=== PATIENT | female | born 1940 | race Caucasian/White ===

== ENCOUNTER 2019-11-26 00:33 | Inpatient (IN) | payer OTHER ==
[~2019-11-26] VITALS: Ht 167.6 cm; Wt 85.4 kg
--- NOTE | 2019-11-26 00:40 | NUR ---
PT BIBA FROM HOME C/O N/V/D TODAY. PT AAOX2, RESPIRATIONS EVEN AND UNLABORED ON RA W/ AND NOTED. PT CONNECTED TO THE MONITOR AND POX
--- NOTE | 2019-11-26 00:50 | NUR ---
BLOOD COLLECTED AND SENT TO LAB
[2019-11-26 00:55] LABS: BASOPHILS # (AUTO) 0.1 /CMM (0.0-0.2); BASOPHILS % (AUTO) 0.6 % (0.0-2.0); EOSINOPHILS % (AUTO) 0.1 % (0.0-6.0); HEMATOCRIT 42 % (33-45); HEMOGLOBIN 14.3 g/dL (11.5-14.8); LYMPHOCYTES # (AUTO) 2.2 /CMM (0.8-4.8); LYMPHOCYTES % (AUTO) 12.7 % (20.0-44.0); MEAN CORPUSCULAR HGB CONC 34 g/dl (31.0-36.0); MEAN CORPUSCULAR VOLUME 91 fL (82-100); MONOCYTES # (AUTO) 0.7 /CMM (0.1-1.30); MONOCYTES % (AUTO) 4.2 % (2.0-12.0); NEUTROPHILS # (AUTO) 14.2 /CMM (1.8-8.9); NEUTROPHILS % (AUTO) 82.4 % (43.0-81.0); PLATELET COUNT (AUTO) 235 /CMM (150-450); RED BLOOD CELL COUNT(AUTO) 4.58 MIL/uL (4.0-5.2); WHITE BLOOD COUNT (AUTO) 17.2 K/uL (4.3-11.0)
[2019-11-26] MEDS ORDERED: IV NS 0.9% 1,000 ML BAG IV ONE (01:00)
[2019-11-26] MEDS ORDERED: ONDANSETRON HCL/PF 4 MG/2 ML VIAL IVP ONE (01:00)
[2019-11-26] MEDS ORDERED: ONDANSETRON HCL/PF 4 MG/2 ML VIAL ONE ×2 (01:06→01:59)
[2019-11-26] MEDS ORDERED: ASPIRIN 325 MG TABLET PO ONE (01:30)
--- NOTE | 2019-11-26 01:41 | NUR ---
URINE COLLECTED AND SENT TO LAB
[2019-11-26 01:48] LABS: CALCIUM, SERUM 9.5 mg/dL (8.5-10.1); CARBON DIOXIDE 19 mmol/L (21-32); CHLORIDE 100 mmol/L (98-107); CREATININE 1.7 mg/dL (0.6-1.3); GLUCOSE 126 mg/dL (74-106); POTASSIUM 3.4 mmol/L (3.5-5.1); SODIUM SERUM 137 mmol/L (136-145); UREA NITROGEN, BLOOD 22 mg/dL (7-18)
[2019-11-26] MEDS ORDERED: ASPIRIN 325 MG TABLET ONE (01:48)
[2019-11-26 01:52] LABS: APPEARANCE,URINE CLOUDY (CLEAR); BLOOD, URINE 2+ Ery/uL (NEGATIVE); COLOR,URINE YELLOW (YELLOW); PROTEIN,URINE TRACE mg/dl (NEGATIVE); UGLUCOSE NEGATIVE (NEGATIVE)
[2019-11-26 01:53] LABS: BILIRUBIN,URINE SMALL (NEGATIVE); KETONES,URINE NEGATIVE (NEGATIVE); LEUKOCYTE ESTERASE ,URINE 3+ (NEGATIVE); NITRITE, URINE POSITIVE (NEGATIVE); UROBILINOGEN,URINE 0.2 EU/dL (0.2)
[2019-11-26 01:54] LABS: ALANINE AMINOTRANSFERASE 12 U/L (12-78); ALBUMIN 3.7 g/dL (3.4-5.0); ALKALINE PHOSPHATASE 155 U/L (46-116); ASPARTATE AMINOTRANSFERASE 19 U/L (15-37); BILIRUBIN,DIRECT 0.2 mg/dL (0.0-0.2); BILIRUBIN,TOTAL 1.1 mg/dL (0.2-1.0); LIPASE 96 U/L (73-393); TOTAL PROTEIN, SERUM 7.5 g/dL (6.4-8.2)
[2019-11-26 01:56] LABS: BACTERIA,URINE Many /HPF (None Seen); RBC,URINE 21-50 /HPF (0-2); WBC,URINE TOO NUMEROUS TO COUN /HPF (0-3)
[2019-11-26 01:57] LABS: SQUAMOUS EPITHELIAL CELL,UR Few /HPF (None Seen); URINE AMORPHOUS URATE Few /HPF (None Seen)
--- NOTE | 2019-11-26 02:09 | NUR ---
PT CONSTANTLY REMOVING CARDIAC LEADS.
[2019-11-26] MEDS ORDERED: METOCLOPRAMIDE HCL 10 MG/2 ML VIAL ONE (02:16)
--- NOTE | 2019-11-26 02:28 | NUR ---
call from lab, rapid covid negative.
[2019-11-26] MEDS ORDERED: CEFTRIAXONE 1GM BAG (ER ONLY) 1 GM/50 ML PIGGYBACK IV ONE (02:30)
[2019-11-26] MEDS ORDERED: ONDANSETRON HCL/PF 4 MG/2 ML VIAL IV ONE (02:30)
[2019-11-26] MEDS ORDERED: METOCLOPRAMIDE HCL 10 MG/2 ML VIAL IV ONE (02:30)
[2019-11-26] MEDS ORDERED: CEFTRIAXONE 1GM BAG (ER ONLY) 50 ML IV ONE (02:42)
--- NOTE | 2019-11-26 02:48 | NUR ---
PT TAKEN TO RADIOLOGY FOR CT
--- NOTE | 2019-11-26 05:52 | NUR ---
MARISSA DUQUE (PT'S DAUGHTER) : [phone]
--- NOTE | 2019-11-26 06:29 | NUR ---
REPORT GIVEN TO MAXI MACIAS FOR DEMETRIO
[2019-11-26] MEDS ORDERED: ONDANSETRON HCL/PF 4 MG/2 ML VIAL IVP PRN (06:30)
[2019-11-26] MEDS ORDERED: Z GUARD REMEDY 2 OZ OINT TP PRN (06:30)
[2019-11-26] MEDS ORDERED: ACETAMINOPHEN 325 MG TABLET PO PRN (06:30)
[2019-11-26 06:45] VITALS: BP 118/68
--- NOTE | 2019-11-26 06:46 | NUR ---
ASSEMBLER CRIMPER RECEIVE PT FROM [facility] AT 0640 VIA APERA BAGSSALLY A/O X2-3 PERIOD OF FORGETFULNESS ADMIT TO TELEMETRY. KEPT CLEAN, DRY AND COMFORTABLE. SAFETY MEASURES AT ALL TIMES. ENDORSE TO EXTENSION WORK DIRECTOR FOR ADMISSION AND PHYSICAL ASSESSMENT
--- NOTE | 2019-11-26 06:47 | NUR ---
PT TRANSFERRED TO ROOM VIA ACLS PROTOCOL
--- NOTE | 2019-11-26 07:03 | NUR ---
PHARMACY NOTIFIED FOR VERIFICATION OF MEDICATIONS
--- NOTE | 2019-11-26 07:25 | NUR ---
PAGED PHARMACY TO VERIFY LOVENOX MED
[2019-11-26] MEDS: IV NS 0.9% 1,000 ML IV PRN ×2 (07:45→21:17)
[2019-11-26 08:00] VITALS: BP 118/68
--- NOTE | 2019-11-26 08:00 | NUR ---
AIRCRAFT ENGINE MECHANIC OVERHAUL NOTES RECEIVED A CALL FROM LAB REPORTING TROPONIN LEVEL OF 13.125. PATIENT ASYMPTOMATIC. NO ACUTE DISTRESS NOTED. DR. SALGADO MADE AWARE WILL CONTINUE TO MONITOR.
[2019-11-26] MEDS ORDERED: LEVO125T8 PO (08:45)
[2019-11-26] MEDS ORDERED: VALS1TAB6 PO (08:45)
[2019-11-26] MEDS ORDERED: ATOR80TA PO (08:45)
[2019-11-26] MEDS: ASPIRIN EC 81 MG TABLET.DR PO SCH (08:51)
[2019-11-26] MEDS ORDERED: ENOXAPARIN SODIUM 30 MG/0.3 ML DISP.SYRIN SQ SCH (09:00)
[2019-11-26] MEDS ORDERED: ENOXAPARIN SODIUM 60 MG/0.6 ML DISP.SYRIN SQ ONE (10:00)
[2019-11-26] MEDS ORDERED: POTASSIUM CHLORIDE 10 MEQ TABLET.SA PO ONE (10:30)
[2019-11-26] MEDS: LEVOTHYROXINE SODIUM 125 MCG TABLET PO SCH (10:41)
[2019-11-26] MEDS: METOPROLOL TARTRATE 25 MG TABLET PO SCH ×2 (10:41→21:00)
[2019-11-26 10:48] LABS: ALANINE AMINOTRANSFERASE 16 U/L (12-78); ALKALINE PHOSPHATASE 130 U/L (46-116); ASPARTATE AMINOTRANSFERASE 69 U/L (15-37); BILIRUBIN,TOTAL 0.7 mg/dL (0.2-1.0); CALCIUM, SERUM 8.6 mg/dL (8.5-10.1); CARBON DIOXIDE 23 mmol/L (21-32); CHLORIDE 103 mmol/L (98-107); CREATININE 1.7 mg/dL (0.6-1.3); GLUCOSE 154 mg/dL (74-106); MAGNESIUM 1.8 mg/dL (1.8-2.4); PHOSPHORUS 3.2 mg/dL (2.5-4.9); POTASSIUM 3.4 mmol/L (3.5-5.1); SODIUM SERUM 137 mmol/L (136-145); TOTAL PROTEIN, SERUM 6.4 g/dL (6.4-8.2); UREA NITROGEN, BLOOD 22 mg/dL (7-18)
[2019-11-26 11:30] LABS: ALBUMIN 3.2 g/dL (3.4-5.0)
[2019-11-26 11:34] VITALS: BP 99/57
[2019-11-26 12:35] LABS: THYROID STIMULATING HORMONE 0.272 uIU/mL (0.358-3.74)
[2019-11-26 16:00] VITALS: BP 90/59
--- NOTE | 2019-11-26 17:30 | NUR ---
SKI GUIDE NOTES RECEIVED CALL FROM LAB REPORTING TROP LEVEL OF 22.466. PATENT IN NO DISTRESS. WNL. DR. COLEMAN AND DR. SALGADO MADE AWARE NO NEW ORDERS AT THIS TIME. CONTINUE TO MONITOR.
--- NOTE | 2019-11-26 18:56 | NUR ---
SENIOR RESERVOIR ENGINEER NOTES PATIENT IN BED SLEEPING EASILY ABUSABLE. PATIENT CONFUSED. NEW PERIPHERAL IV STARTED ON LEFT FOREARM G22 WITH GOOD BLOOD RETURN. ALL DUE MEDICATIONS ADMINISTERED. ALL NEEDS MET. NO NEW CHANGES NOTED DURING AM SHIFT. SPOKE TO PATIENTS DAUGHTER UPDATED ON PATIENTS STATUS. SAFETY MEASURES IN PLACE. WILL ENDORSE CARE TO PM SHIFT.
--- NOTE | 2019-11-26 19:30 | NUR ---
RN NOTES RECEIVED PT. SLEEPING BUT AROUSABLE, A/OX2, SB ON TELE MONITOR HR-55, NOT IN DISTRESS, BED IN LOCKED POSITION, CALL LIGHT WITHIN REACH, SIDERAILSUPX2, CONTINUE TO MONITOR
[2019-11-26 20:00] VITALS: BP 94/47
--- NOTE | 2019-11-26 20:00 | NUR ---
RN NOTES NOTICED PT. BLOOD PRESSURE WAS ON THE 90'S , PUT UP PT'S LEG , PT. IS ASYMPTOMATIC, PT IS AWAKE, ALERT, WILL CONTINUE TO MONITOR
[2019-11-26] MEDS: ATORVASTATIN 40 MG TABLET PO SCH (21:10)
[2019-11-26] MEDS ORDERED: ATORVASTATIN 10 MG TABLET PO SCH (22:00)
[2019-11-27] VITALS: BP 112/60
[2019-11-27] MEDS: CEFTRIAXONE 1 G in IV D5W 50 ML IV SCH (00:48)
[2019-11-27 04:00] VITALS: BP 111/66
--- NOTE | 2019-11-27 05:34 | NUR ---
EKG ORDERED AND NOT DONE OF THIS TIME. PATIENT IS CONFUSED AND REFUSING EKG. RN CATY IS NOTIFIED AND SUGGESTED TO TRY AGAIN LATER WHEN PATIENT IS MORE ORIENTED. PROCEDURE WILL BE ENDORSED TO AM RT.
--- NOTE | 2019-11-27 06:00 | NUR ---
RN NOTES PT. PULLED OUT HER IV , WE WILL TRY TO PUT A NEW ONE
--- NOTE | 2019-11-27 06:34 | NUR ---
RN NOTES AWAKE MORNING CARE RENDERED, WAITNG FOR NIRALI CHARGE NURSE TO PUT ANEW IV LINE, NOT IN DISTRESS, NO PAIN NOTED, CALL LIGHT WITHIN REACH, MICHELEUPX2, PT. NEEDS ATTENDED
--- NOTE | 2019-11-27 06:45 | NUR ---
RN NOTES AWAKE, REFUSED TO HAVE AN IV LINE, WILL ENDORSED TO INCOMING NURSE
[2019-11-27 06:49] LABS: BASOPHILS # (AUTO) 0.1 /CMM (0.0-0.2); BASOPHILS % (AUTO) 0.6 % (0.0-2.0); EOSINOPHILS % (AUTO) 1.3 % (0.0-6.0); HEMATOCRIT 37 % (33-45); HEMOGLOBIN 12.3 g/dL (11.5-14.8); MEAN CORPUSCULAR HGB CONC 33 g/dl (31.0-36.0); MEAN CORPUSCULAR VOLUME 93 fL (82-100); MONOCYTES # (AUTO) 0.8 /CMM (0.1-1.30); MONOCYTES % (AUTO) 5.7 % (2.0-12.0); NEUTROPHILS % (AUTO) 71.4 % (43.0-81.0); PLATELET COUNT (AUTO) 175 /CMM (150-450); RED BLOOD CELL COUNT(AUTO) 3.98 MIL/uL (4.0-5.2); WHITE BLOOD COUNT (AUTO) 14.1 K/uL (4.3-11.0)
[2019-11-27 06:56] LABS: CHOLESTEROL 113 mg/dL (<200); HDL CHOLESTEROL 36 mg/dL (40-60); LDL 63 mg/dL (0-99); TRIGLYCERIDES 115 mg/dL (30-150)
[2019-11-27 07:12] LABS: ALANINE AMINOTRANSFERASE 16 U/L (12-78); ALKALINE PHOSPHATASE 118 U/L (46-116); ASPARTATE AMINOTRANSFERASE 78 U/L (15-37); BILIRUBIN,TOTAL 0.7 mg/dL (0.2-1.0); CALCIUM, SERUM 8.8 mg/dL (8.5-10.1); CARBON DIOXIDE 23 mmol/L (21-32); CHLORIDE 105 mmol/L (98-107); CREATININE 1.5 mg/dL (0.6-1.3); GLUCOSE 90 mg/dL (74-106); MAGNESIUM 1.8 mg/dL (1.8-2.4); PHOSPHORUS 2.6 mg/dL (2.5-4.9); POTASSIUM 3.8 mmol/L (3.5-5.1); SODIUM SERUM 137 mmol/L (136-145); TOTAL PROTEIN, SERUM 6.3 g/dL (6.4-8.2); UREA NITROGEN, BLOOD 22 mg/dL (7-18)
--- NOTE | 2019-11-27 07:50 | NUR ---
RN NOTE THE PATIENT IS RECEIVED IN BED. THE PATIENT IS IN ROOM AIR AND DENIES SOB. RESPIRATION REGULAR AND UNLABORED. DENIES PAIN. EXTERNAL TELE BOX READING IS IS SINUS BRADYCARDIA. THE PATIENT IS IN NO APPARENT DISTRESS. NOTED THE PATIENT DOES NOT HAVE IV ACCESS AND PER NIGHT ENDORSEMENT THE PATIENT HAS BEEN REFUSING. WILL ENCOURAGE AND INSERT IV LINE. BED LOW AND LOCKED. SIDE RAILS UP X3. BED ALARM ON. CALL LIGHT WITHIN REACH. WILL CONTINUE TO MONITOR..
[2019-11-27 08:00] VITALS: BP 106/57
[2019-11-27] MEDS: LEVOTHYROXINE SODIUM 125 MCG TABLET PO SCH (08:58)
[2019-11-27] MEDS: ASPIRIN EC 81 MG TABLET.DR PO SCH (08:58)
[2019-11-27] MEDS: METOPROLOL TARTRATE 25 MG TABLET PO SCH ×2 (09:00→21:00)
[2019-11-27] MEDS ORDERED: ENOXAPARIN SODIUM 100 MG/ML DISP.SYRIN SQ SCH (09:00)
--- NOTE | 2019-11-27 14:00 | NUR ---
RN NOTE THE PATIENT IS NON-COMPLIANT WITH IV FLUID DESPITE EXPLAINING RISKS AND BENEFITS MULTIPLE TIMES.
[2019-11-27 16:00] VITALS: BP 124/56
--- NOTE | 2019-11-27 16:30 | NUR ---
RN NOTE DR COLEMAN IS MADE AWARE OF TROPONIN LEVEL OF 10.131 AND MD WITH NO NEW ORDERS. THE PATIENT IS IN NO APPARENT DISTRESS. DENIES PAIN.
[2019-11-27] MEDS ORDERED: ENOXAPARIN SODIUM 100 MG/ML DISP.SYRIN SQ ONE (18:30)
--- NOTE | 2019-11-27 18:31 | NUR ---
TELE/RN NOTE THE PATIENT IS ALERT AND ORIENTED X2. DENIES PAIN. THE PATIENT IS IN ROOM AIR AND SATURATION IS AT 95%. DENIES SOB. BREATHING EVEN AND UNLABORED. TELE BOX READING IS SINUS BRADYCARDIA 57. PATIENT STILL NON-COMPLIANT WITH IV FLUIDS DESPITE EXPLAINING RISKS AND BENEFITS. PATIENT IN NO APPARENT DISTRESS. BED LOW AND LOCKED. SIDE RAILS UP X3. CALL LIGHT WITHIN REACH. WILL ENDORSE TO MEDICAL RECORDS CODER.
[2019-11-27 20:00] VITALS: BP 103/57
--- NOTE | 2019-11-27 20:00 | NUR ---
RN NOTES RECEIVED PT. SLEEPING BUT AROUSABLE, A/OX2, SB ON TELE MONITOR HR-55, PER DAYSHIFT NURSE PT. CAN OUT HER IV ACCESS AGAIN, , WE'RE GOING TO TRY TO INSERT AGAIN, BED IN LOCKED POSITION, CALL LIGHT WITHIN REACH, SIDERALSUPX2, CONTINUE TO MONITOR
[2019-11-27 20:32] VITALS: BP 117/57
[2019-11-27] MEDS: ATORVASTATIN 40 MG TABLET PO SCH (21:51)
--- NOTE | 2019-11-27 22:00 | NUR ---
RN NOTES PT. STILL REFUSING TO HAVE AN IV LINE, CHARGE NURSE MADE AWARE , WILL TRY AGAIN LATER
[2019-11-28] VITALS (29 sets, daily range): BP systolic 95–144; BP diastolic 22–75
--- NOTE | 2019-11-28 | NUR ---
RN NOTES ROCEPHIN WAS NOT GIVEN , PT. REFUSED TO HAVE AN IV ACCESS, CHARGE NURSE MADE, AWARE
--- NOTE | 2019-11-28 06:00 | NUR ---
RN NOTES PT. STILL REFUSING TO HAVE AN IV ACCESS
--- NOTE | 2019-11-28 06:10 | NUR ---
RN NOTES TRYING TO CALL THE FAMILY TO GET A CONSENT FOR CARDIAC CATH PROCEDURE BUT THE PHONE NUMBER TEHY PROVIDED IS NOT WORKING
--- NOTE | 2019-11-28 07:00 | NUR ---
RN NOTES DR. DIAZ -RESEARCH GEOLOGIST SPOKE TO THE PATIENT REGARDING CARDIAC CATH PROCEDURE BUT PT. NEEDS TO BE REMINDED OFTEN. WILL ENDORSED TO DAYSHIFT NURSE
--- NOTE | 2019-11-28 07:10 | NUR ---
ELECTRONIC GAME DEVELOPER NOTES RECEIVED PATIENT IN BED ALERT AND AWAKE ORIENTED X1-2. OBSERVED PATIENT WITH FORGET FULLNESS. NO SOB. ON ROOM AIR WITH SPO2 OF 99%. DENIES ANY C/O PAIN NOR DISCOMFORT AT THIS TIME. ON TELE MONITORING SB WITH PAC WITH PVC: 58. AMBULATORY WITH STEADY GAIT. BED IN LOWEST POSITION ,LOCKED. BED ALARM ON. CALL LIGHT WITHIN REACH. ABLE TO VERBALIZE NEEDS.
[2019-11-28] MEDS: LEVOTHYROXINE SODIUM 125 MCG TABLET PO SCH (07:30)
[2019-11-28] MEDS: METOPROLOL TARTRATE 25 MG TABLET PO SCH ×2 (08:46→21:15)
[2019-11-28] MEDS: ASPIRIN EC 81 MG TABLET.DR PO SCH (08:46)
[2019-11-28 09:00] LABS: BASOPHILS # (AUTO) 0.1 /CMM (0.0-0.2); BASOPHILS % (AUTO) 0.8 % (0.0-2.0); EOSINOPHILS % (AUTO) 2.9 % (0.0-6.0); HEMATOCRIT 38 % (33-45); HEMOGLOBIN 12.6 g/dL (11.5-14.8); LYMPHOCYTES # (AUTO) 2.7 /CMM (0.8-4.8); LYMPHOCYTES % (AUTO) 27.4 % (20.0-44.0); MEAN CORPUSCULAR HGB CONC 33 g/dl (31.0-36.0); MEAN CORPUSCULAR VOLUME 93 fL (82-100); MONOCYTES # (AUTO) 0.8 /CMM (0.1-1.30); MONOCYTES % (AUTO) 8.2 % (2.0-12.0); NEUTROPHILS # (AUTO) 5.9 /CMM (1.8-8.9); NEUTROPHILS % (AUTO) 60.7 % (43.0-81.0); PLATELET COUNT (AUTO) 166 /CMM (150-450); RED BLOOD CELL COUNT(AUTO) 4.07 MIL/uL (4.0-5.2); WHITE BLOOD COUNT (AUTO) 9.8 K/uL (4.3-11.0)
[2019-11-28 09:47] LABS: CARBON DIOXIDE 21 mmol/L (21-32)
[2019-11-28 09:48] LABS: CHLORIDE 105 mmol/L (98-107); POTASSIUM 3.5 mmol/L (3.5-5.1); SODIUM SERUM 137 mmol/L (136-145)
[2019-11-28 09:49] LABS: ALKALINE PHOSPHATASE 119 U/L (46-116); BILIRUBIN,TOTAL 0.7 mg/dL (0.2-1.0); CREATININE 1.2 mg/dL (0.6-1.3); PHOSPHORUS 2.6 mg/dL (2.5-4.9); UREA NITROGEN, BLOOD 17 mg/dL (7-18)
[2019-11-28 09:50] LABS: ALANINE AMINOTRANSFERASE 14 U/L (12-78); ALBUMIN 2.8 g/dL (3.4-5.0); ASPARTATE AMINOTRANSFERASE 48 U/L (15-37)
[2019-11-28 09:51] LABS: GLUCOSE 102 mg/dL (74-106); TOTAL PROTEIN, SERUM 6.1 g/dL (6.4-8.2)
[2019-11-28 09:57] LABS: MAGNESIUM 1.9 mg/dL (1.8-2.4)
[2019-11-28] MEDS ORDERED: IODIXANOL 150 ML IV ONE (10:22)
[2019-11-28] MEDS ORDERED: IV SET PRIMARY PUMP SET 1 EA INFUS.SET MC ONE (10:22)
[2019-11-28] MEDS ORDERED: IV NS 0.9% 500 ML IV ONE (10:22)
[2019-11-28] MEDS ORDERED: LIDOCAINE HCL/PF 1% 30 ML SDV ONE (10:23)
--- NOTE | 2019-11-28 10:45 | NUR ---
SHORT HAUL DRIVER NOTES PATIENT LEFT UNIT, WENT TO ENGINEERING PSYCHOLOGIST FOR CARDIAC CATH.
[2019-11-28] MEDS ORDERED: FENTANYL PF 100MCG/2ML AMPUL ONE ×2 (11:13→12:46)
[2019-11-28] MEDS ORDERED: MIDAZOLAM HCL 2 MG/2ML VIAL ONE ×2 (11:13→11:54)
[2019-11-28] MEDS ORDERED: ONDANSETRON HCL/PF 4 MG/2 ML VIAL ONE (11:15)
[2019-11-28] MEDS ORDERED: NITROGLYCERIN ICAR 1,000 MCG/10 ML VIAL ICAR ONE (11:17)
[2019-11-28] MEDS ORDERED: HEPARIN SODIUM, PORCINE 1,000 UNIT/ML VIAL ONE (11:47)
[2019-11-28] MEDS ORDERED: IODIXANOL 320MG/ML 50 ML IV ONE (11:51)
[2019-11-28] MEDS ORDERED: IODIXANOL 320MG/ML 100 ML IV ONE (12:11)
[2019-11-28] MEDS ORDERED: TICAGRELOR 90 MG TABLET PO ONE (12:30)
[2019-11-28] MEDS ORDERED: ASPIRIN 81 MG TAB.CHEW ONE (12:33)
--- NOTE | 2019-11-28 13:40 | NUR ---
ICU/RN: RECEIVED PT FROM SENIOR SERVICE TECHNICIAN. S/P PCI. RIGHT TR BAND IN PLACE, NO ACTIVE BLEEDING NOTED. WILL START RELEASING AIR ORDERED. PT ACCESSED THROUGH RIGHT FEMORAL, SHEATH REMOVED IN SENIOR SERVICE TECHNICIAN, DRESSING CLEAN AND DRY NO S/S OF BLEEDING NOTED. PT ALERT, FOLLOWS COMMANDS. ON NASAL CANULA, NO DISTRESS NOTED. SINUS ON TELE. BEDSIDE REPORT RECEIVED FROM 3W MAXI HUTCHINS. ALL BELONGINGS PLACED AT THE BEDSIDE. CALL LIGHT WITHIN REACH, BED IN LOW POSITION, SIDE RAILS UP. WILL CONTINUE CARE.
--- NOTE | 2019-11-28 14:00 | NUR ---
TRAIN CONDUCTOR NOTES PATIENT TRANSFERRED TO ICU AFTER CARDIAC CATH. BEDSIDE REPORT GIVEN TO ICU NURSE, MAXI WELLER.
[2019-11-28] MEDS ORDERED: Sodium Bicarbonate 150 MEQ in IV D5W 1,000 ML IV PRN (15:00)
[2019-11-28] MEDS ORDERED: IV NS 0.9% 1,000 ML IV PRN (15:00)
[2019-11-28] MEDS ORDERED: ONDANSETRON HCL/PF 4 MG/2 ML VIAL IVP PRN (16:00)
[2019-11-28] MEDS ORDERED: MORPHINE SULFATE INJ 4 MG/ML DISP.SYRIN IV PRN (16:00)
[2019-11-28] MEDS ORDERED: MORPHINE SULFATE INJ 2 MG/ML DISP.SYRIN IV PRN (16:00)
--- NOTE | 2019-11-28 16:30 | NUR ---
ICU/RN: 1345: 3CC AIR REMOVED, NO S/S OF BLEEDING NOTED. 1440:3CC AIR REMOVED, NO S/S OF BLEEDING NOTED. 1500:3CC AIR REMOVED, SOME BLEEDING NOTED. AT BEDSIDE, ASSESSED, REINFLATED 3CC AIR AND CONTINUE TO MONITOR. 1600:3 CC AIR REMOVED, NO S/S OF BLEEDING NOTED 1645: PT PULLED OFF TR BAND, NOTIFIED. NO BLEEDING NOTED. TAGADERM DRESSING APPLIED. WILL CONTINUE TO MONITOR.
--- NOTE | 2019-11-28 19:45 | NUR ---
ICU/RN: ENDING NOTES,AM REPORT ENDORSED TO NIGHT NURSE FOR CONTINUATION OF CARE. PT ALERT, AWAKE, FOLLOWS COMMANDS, PERIODS OF CONFUSION NOTED. PT ON NASAL CANULA, 2LITERS, TOLERATING WELL, NO DISTRESS NOTED. TR BAND REMOVED, DRESSING APPLIED. NO S/S OF ACTIVE BLEEDING NOTED. RIGHT GROIN DRESSING CLEAN/DRY AND INTACT. ALL PULSES REGULAR AND PALPABLE. ALL NEEDS ATTENDED TO, SAFETY MEASURES TAKEN, BED IN LOW POSITION, SIDE RAILS UP, CALL LIGHT WITHIN REACH. WILL CONTINUE CARE.
--- NOTE | 2019-11-28 20:00 | NUR ---
Received patient awake alert and oriented 1-2and forgetful.S/P Heart Cath with PTCA and Stent Placement.Right wrist and Right groin dressing C/D/I.Pulses palpable.No bleeding or hematoma noted.Tele monitoring SR.Normotensive.Respiration even and unlabored with O2 2L NC saturation 92%-97%. Denies chest pain or sob.Safety precaution maintained with call light at bedside.Bed locked and low position and bed alarm on and side rails up.IVF infusing well.Continue monitoring.
[2019-11-28] MEDS: TICAGRELOR 90 MG TABLET PO SCH (21:16)
[2019-11-28] MEDS: ATORVASTATIN 40 MG TABLET PO SCH (21:16)
[2019-11-28] MEDS: CEFTRIAXONE 1 G in IV D5W 50 ML IV SCH ×3 (23:54)
[2019-11-29] VITALS (14 sets, daily range): BP systolic 107–159; BP diastolic 40–88
--- NOTE | 2019-11-29 | NUR ---
Patient awake very forgetful kept removing tele monitoring leads/wires and O2 nasal cannula. Frequent reorientation done.Patient desat to 70's when O2 off.Noted bleeding to right wrist cath site.Dressing changed.No further bleeding noted.No hematoma noted.Hygienic measures done. Turned and repositioned.
[2019-11-29] MEDS: IV NS 0.9% 1,000 ML IV PRN ×2 (01:00→16:59)
[2019-11-29 04:41] LABS: BASOPHILS % (AUTO) 0.3 % (0.0-2.0); EOSINOPHILS % (AUTO) 1.9 % (0.0-6.0); HEMATOCRIT 33 % (33-45); HEMOGLOBIN 11.1 g/dL (11.5-14.8); LYMPHOCYTES # (AUTO) 2.1 /CMM (0.8-4.8); LYMPHOCYTES % (AUTO) 15.6 % (20.0-44.0); MEAN CORPUSCULAR HGB CONC 33 g/dl (31.0-36.0); MEAN CORPUSCULAR VOLUME 93 fL (82-100); MONOCYTES # (AUTO) 0.9 /CMM (0.1-1.30); MONOCYTES % (AUTO) 6.4 % (2.0-12.0); NEUTROPHILS # (AUTO) 10.2 /CMM (1.8-8.9); NEUTROPHILS % (AUTO) 75.8 % (43.0-81.0); PLATELET COUNT (AUTO) 182 /CMM (150-450); WHITE BLOOD COUNT (AUTO) 13.4 K/uL (4.3-11.0)
[2019-11-29 04:50] LABS: ALBUMIN 2.5 g/dL (3.4-5.0); BILIRUBIN,TOTAL 0.9 mg/dL (0.2-1.0); CALCIUM, SERUM 8.4 mg/dL (8.5-10.1); MAGNESIUM 1.6 mg/dL (1.8-2.4); PHOSPHORUS 2.7 mg/dL (2.5-4.9); POTASSIUM 3.3 mmol/L (3.5-5.1); TOTAL PROTEIN, SERUM 5.5 g/dL (6.4-8.2)
--- NOTE | 2019-11-29 06:00 | NUR ---
Patient resting vs stable.SR/SB 55.Denies Chest pain or sob.Incontinent of urine.Kept clean and dry. Patient verbalized I started pulling out things.Noted she pulled out saline lock to left arm with cath tip intact..No active bleeding noted.Reminded patient not to pull out Picc line.Turned and repositioned. Kept comfortable.
--- NOTE | 2019-11-29 08:20 | NUR ---
GAMING MANAGER NOTES, Received patient awake alert and oriented x2, O2 2L NC saturation with optimal o2 sat level, no sob/acute distress noted, denies pain or discomfort, eating breakfast at this time, S/P Heart Cath with PTCA and Stent Placement, Right wrist and Right groin dressing intact, no bleeding noted Pulses palpable, no hematoma noted, nrs in monitor with hr high 50s at this time, Safety precaution maintained with, call light w/i reach, .Bed locked and low position, midline noted on the floor either pulled for patient or accidentally, will f/u with md, will continue to monitor closely.
[2019-11-29] MEDS: LEVOTHYROXINE SODIUM 125 MCG TABLET PO SCH (08:47)
[2019-11-29] MEDS: ASPIRIN EC 81 MG TABLET.DR PO SCH (08:47)
[2019-11-29] MEDS: TICAGRELOR 90 MG TABLET PO SCH ×2 (08:48→16:56)
--- NOTE | 2019-11-29 09:28 | NUR ---
WOUND CARE CONSULT: PT PRESENTS WITH RED RASH TO BREASTFOLDS, PRESENT ON ADMISSION. RECOMMENDATIONS MADE FOR SKIN PROTECTION. DISCUSSED WITH NURSING STAFF. MD IN AGREEMENT WITH PLAN OF CARE. PT NOTED TO BE INCONTINENT.
[2019-11-29] MEDS: POTASSIUM CHLORIDE 20 MEQ TAB.PRT.SR PO SCH ×2 (10:15→11:45)
[2019-11-29] MEDS: METOPROLOL TARTRATE 25 MG TABLET PO SCH ×2 (10:34→21:09)
--- NOTE | 2019-11-29 11:20 | NUR ---
GENERAL SALES MANAGER NOTES, TRANSFERRED PATIENT TO AR 3W FLOOR WITH ALL ACLS PROTOCOL, PATIENT IN STABLE CONDITION, NO ACUTE DISTRESS NOTED, WITH STABLE VITAL SIGNS, GAVE BEDSIDE REPORT TO MAXI MATOS.
--- NOTE | 2019-11-29 11:30 | NUR ---
MS/marketing automation analyst Patient transferred from ICU, s/p cardiac cath with stent placement yesterday. Awaiting midline insertion, scheduled for after 1p, will administer magnesium when line inserted. Second dose of potassium given orally, no difficulty swallowing pill. Seen by Dejan Mane DNP - continue to monitor patient and replace electrolytes. For discharge palnning back to home tomorrow. Oriented to new surroundings, call light within reach. Bed in low setting, brakes locked, side rails X3 in upright position. Will continue to monitor and ensure safety.
[2019-11-29] MEDS: Magnesium 1GM/D5W 100ML PREMIX 100 ML IV SCH ×2 (15:45→16:50)
--- NOTE | 2019-11-29 16:21 | NUR ---
Interior Decorator Paperhanging consult requested as patient lives alone. SW unable to speak with patient at patient is alert and oriented x2. SW to follow up with family and case management team.
[2019-11-29] MEDS: CLOTRIMAZOLE 1% 15 GM TUBE TP SCH (16:56)
--- NOTE | 2019-11-29 18:45 | NUR ---
MS/RN CLOSING NOTE PATIENT IS IN STABLE CONDITION. A/O X2. PATIENT IS ON OXYGEN THERAPY 2L/MIN VIA NASAL CANNULA. NO ACUTE DISTRESS NOTED. TELE MONITOR READING NSR. ALL NEEDS ADDRESSED WILL ENDORSE TO BRAILLE CODER.
--- NOTE | 2019-11-29 19:13 | NUR ---
MS/RN Midline Patient pulled out midline, Dr Alhaji mayorga aware. Okay to leave patient without line.
--- NOTE | 2019-11-29 19:38 | NUR ---
PATHOLOGIST OPENING NOTES RECEIVED PATIENT AWAKE, A/OX2, CONFUSED; PATIENT ABLE TO AMBULATE WITH MINIMAL ASSISTANCE; TOLERATING ROOM AIR WELL; NO SOB NOTED; TELE MONITOR READS SINUS RHYTHM; PER AM SHIFT, PATIENT PULLED OUT MIDLINE X2, PER ELISA, DIRECTOR OF PATIENT CARE LEAVE MIDLINE OUT; AND HOLD SCHEDULED ROCEPHIN @ 0000. SAFETY PRECAUTIONS IMPLEMENTED; BED LOCKED IN LOW POSITION; SIDE RAILSX2; CALL LIGHT WITHIN REACH; WILL CONT TO MONITOR
[2019-11-29] MEDS: ATORVASTATIN 40 MG TABLET PO SCH (21:09)
--- NOTE | 2019-11-29 22:55 | NUR ---
TRAFFIC MAINTENANCE SUPERVISOR NOTES PATIENT CONFUSED, CONSTANTLY TAKING OFF TELE MONITOR; CHARGE NURSE AWARE; MD AWARE; PER ISHA SIMPSON FOR ATIVAN 1MG Q8HRS PRN, ORDERS RECEIVED AND CARRIED OUT; WILL CONT TO MONITOR
[2019-11-29] MEDS ORDERED: LORAZEPAM 1 MG TABLET PO PRN (23:00)
[2019-11-29] MEDS: CEFTRIAXONE 1 G in IV D5W 50 ML IV SCH (23:02)
[2019-11-30] VITALS (7 sets, daily range): BP systolic 106–143; BP diastolic 50–102
--- NOTE | 2019-11-30 06:46 | NUR ---
HEALTH AND FITNESS PROFESSOR CLOSING NOTES patient resting in bed comfortably; a/ox2, confused; patient breathing even and unlabored; tolerating room air well; no sob noted; tele monitor reads NSR; all needs rendered; safety precautions implemented; bed locked in low position side railsx2, will endorse ruben to oncoming shift
[2019-11-30 07:00] LABS: BASOPHILS % (AUTO) 0.4 % (0.0-2.0); EOSINOPHILS % (AUTO) 2.8 % (0.0-6.0); HEMATOCRIT 33 % (33-45); HEMOGLOBIN 11.4 g/dL (11.5-14.8); LYMPHOCYTES # (AUTO) 2.2 /CMM (0.8-4.8); LYMPHOCYTES % (AUTO) 20.3 % (20.0-44.0); MEAN CORPUSCULAR HGB CONC 35 g/dl (31.0-36.0); MEAN CORPUSCULAR VOLUME 91 fL (82-100); MONOCYTES % (AUTO) 9.6 % (2.0-12.0); NEUTROPHILS # (AUTO) 7.2 /CMM (1.8-8.9); NEUTROPHILS % (AUTO) 66.9 % (43.0-81.0); PLATELET COUNT (AUTO) 187 /CMM (150-450); RED BLOOD CELL COUNT(AUTO) 3.62 MIL/uL (4.0-5.2); WHITE BLOOD COUNT (AUTO) 10.8 K/uL (4.3-11.0)
[2019-11-30 07:02] LABS: CALCIUM, SERUM 8.8 mg/dL (8.5-10.1); POTASSIUM 3.8 mmol/L (3.5-5.1)
[2019-11-30] MEDS: LEVOTHYROXINE SODIUM 125 MCG TABLET PO SCH (08:13)
[2019-11-30] MEDS: ASPIRIN EC 81 MG TABLET.DR PO SCH (08:13)
[2019-11-30] MEDS: TICAGRELOR 90 MG TABLET PO SCH ×2 (08:14→16:50)
[2019-11-30] MEDS: METOPROLOL TARTRATE 25 MG TABLET PO SCH ×2 (08:14→21:32)
[2019-11-30] MEDS: CLOTRIMAZOLE 1% 15 GM TUBE TP SCH ×2 (08:17→16:50)
--- NOTE | 2019-11-30 08:30 | NUR ---
PROVISIONING ANALYST NOTES PT IN BED, AWAKE, ALERT AND VERBALLY RESPONSIVE, WITH EPISODES OF CONFUSION, NO COMPLAINT OF PAIN, RESPIRATIONS NORMAL, CALL LIGHT WITHIN REACH, BED ALARM ON.
--- NOTE | 2019-11-30 11:50 | NUR ---
OYSTERMAN NOTES PT IN BED, ASLEEP, EASY TO AROUSE, ALERT AND VERBALLY RESPONSIVE, NO COMPLAINT AT THIS TIME, SEEN BY DR. STRAUSS, DISCHARGE ORDER GIVEN, PT AND FAMILY INFORMED, PT ALSO SEEN BY PHYSICAL THERAPIST, AWAITING PLACEMENT, ASSISTED WITH MEALS.
--- NOTE | 2019-11-30 16:00 | NUR ---
RN MS NOTES REPORT GIVEN TO [facility] OF [facility], PT'S DAUGHTER MARISSA AWARE OF PLAN FOR TRANSFER TO SNF, AWAITING RAPID COVID TEST RESULT.
--- NOTE | 2019-11-30 17:30 | NUR ---
RN MS NOTES RECEIVED RESULT OF RAPID COVID SWAB FROM LAB, WITH POSITIVE RESULTS, DR. STRAUSS INFORMED, CASE MANAGEMENT INFORMED, RECEIVED ORDER TO TRANSFER PT TO [facility], PT INFORMED.
--- NOTE | 2019-11-30 18:48 | NUR ---
RN NOTES RECEIVED PATIENT FROM MAXI ALSTON BEDSIDE, PATIENT TRANSFERRED FROM [facility]. A/O X2. ON ROOM AIR, NO SIGNS OF DISTRESS NOTED AT THIS TIME. WILL ENDORSE TO MEAT TRIMMER FOR DEMETRIO.
--- NOTE | 2019-11-30 18:49 | NUR ---
RN MS NOTES TRANSFERRED PT TO [facility], REPORT GIVEN TO MAGALY GERMAN.
--- NOTE | 2019-11-30 21:10 | NUR ---
MS/RN OPENING NOTE Patient is awake in bed, A/O x2, confused. Breathing even, clear, unlabored on RA. No acute distress or SOB. Generalized bruising noted. Abdomen large round soft, non-tender. Patient is continent, ambulate with assist to bathroom. No IV site access, pending discharge. Bed in low position, wheels locked, side rails up x2, call light within reach.
[2019-11-30] MEDS: ATORVASTATIN 40 MG TABLET PO SCH (21:31)
--- NOTE | 2019-11-30 22:32 | NUR ---
MS/MANGLE ROLL OPERATOR NOTE Patient discharge via ambulance. Reviewed all discharge documents with patient. All belongings and valuables were given. IV site removed. VS: BP140/91 T98 P74 R18 [id number] No SOB or acute distress noted.
== END 2019-11-30 22:32 | DRG 853 ==
LOC: ER 00:35 → TELE 05:36 → ICU 11-28 13:54 → TELE 11-29 11:13 → MEDSG2 11-30 18:39
PROVIDERS: ADMIT Student in an Organized Health Care Education/Training Program; ATTEND Nurse Practitioner Acute Care
PROC: 4A023N7 Measurement of Cardiac Sampling and Pressure, Left Heart, Percutaneous Approach (ICD-10-PCS; principal; 2019-11-28)
PROC: B211YZZ Fluoroscopy of Multiple Coronary Arteries using Other Contrast (ICD-10-PCS; 2019-11-28)
PROC: B215YZZ Fluoroscopy of Left Heart using Other Contrast (ICD-10-PCS; 2019-11-28)
PROC: B41FYZZ Fluoroscopy of Right Lower Extremity Arteries using Other Contrast (ICD-10-PCS; 2019-11-28)
PROC: 05HY33Z Insertion of Infusion Device into Upper Vein, Percutaneous Approach (ICD-10-PCS; 2019-11-28)
PROC: 027035Z Dilation of Coronary Artery, One Artery with Two Drug-eluting Intraluminal Devices, Percutaneous Approach (ICD-10-PCS; 2019-11-30)
DX: A41.9 Sepsis, unspecified organism (principal); I21.4 Non-ST elevation (NSTEMI) myocardial infarction; N17.0 Acute kidney failure with tubular necrosis; G92 Toxic encephalopathy; E44.1 Mild protein-calorie malnutrition; N39.0 Urinary tract infection, site not specified; E87.1 Hypo-osmolality and hyponatremia; I13.0 Hypertensive heart and chronic kidney disease with heart failure and stage 1 through stage 4 chronic kidney disease, or unspecified chronic kidney disease; I50.30 Unspecified diastolic (congestive) heart failure; E03.9 Hypothyroidism, unspecified; F03.90 Unspecified dementia, unspecified severity, without behavioral disturbance, psychotic disturbance, mood disturbance, and anxiety; Z79.899 Other long term (current) drug therapy; I25.10 Atherosclerotic heart disease of native coronary artery without angina pectoris; N18.9 Chronic kidney disease, unspecified; K44.9 Diaphragmatic hernia without obstruction or gangrene; K57.30 Diverticulosis of large intestine without perforation or abscess without bleeding; E87.6 Hypokalemia; B96.20 Unspecified Escherichia coli [E. coli] as the cause of diseases classified elsewhere; I27.20 Pulmonary hypertension, unspecified; I08.0 Rheumatic disorders of both mitral and aortic valves
CPT/HCPCS: 36415; 70450-TC; 71045-TC; 80048-TC; 80053-TC; 80061-TC; 80076-TC; 81000-TC; 83540-TC; 83690-TC; 83735-TC; 84100-TC; 84439-TC; 84443-TC; 84484-TC; 85025-TC; 85730-TC; 87081-TC; 87086-TC; 87186-TC; 92973-TC; 92980; 92981; 93307-TC; 97110-TC; 97116-TC; 97530-TC; C1725; C1753; C1769; C1887; C1894; C9803; G0378; G0500; J0696; J1644; J1650; J2250; J2405; J2765; J3010; J3475; J3490; J7030; J7040; J7060; J7070; Q9967